=== PATIENT | female | born 2000 | race Caucasian/White ===

== ENCOUNTER 2024-03-24 16:01 | Outpatient (AMB) | payer BC, SELFPAY ==
--- NOTE | 2024-03-24 16:09 | MHC.OFFWIV ---
Intake Vital Signs 03/24/24 16:18 BP 122/80 Blood Pressure Location Rt brachial Position Sitting Pulse 81 Pulse Source Pulse Oximeter Temp 98.2 F Temp Source Oral Pulse Oximetry (%) 97 Oxygen Delivery Method Room Air Intake Visit Reasons: [employer] cough nasal congestion Intake Note: pt is here for cough with nasal congestion for over 8 months and spits up green phlem Patient Tobacco Use Status: Never used Tobacco Allergies No Known Allergies Allergy (Verified 03/24/24 16:10) Do you need a note to return to daycare/school/sports/work: No HPI HPI Comments History of Present Illness Details 23 y/o female patient who presents to walk in clinic with c/o persitent dry cough, nasal congestion and sneezing for 8 months. Pt just moved to [place] from [place] 8 months ago. Denies fevers, chills, nausea or vomiting. PFSH Social History Patient Tobacco Use Status: Never used Tobacco Review of Systems Const All systems reviewed & are unremarkable except as noted in HPI and below Physical Exam Vital Signs: Last Vital Signs Temp 98.2 F 03/24/24 16:18 Pulse 81 03/24/24 16:18 BP 122/80 03/24/24 16:18 Pulse Ox 97 03/24/24 16:18 Oxygen Delivery Method Room Air 03/24/24 16:18 Const General: comfortable and no acute distress Nutritional Appearance: obese Orientation/consciousness: patient oriented x3 HEENT Head: Yes normocephalic Ears: external ears normal and TM abnormal bulging, erythematous and with fluid behind the TM; not perforated and not retracted General nose exam: Abnormal mucous membranes and turbinates present boggy and erythematous Face and sinus: Yes sinuses nontender Mouth: moist mucous membranes Throat: Yes posterior oropharynx normal Resp Effort & Inspection: normal respiratory effort and able to speak in complete sentences Auscultation: clear to auscultation bilaterally, no crackles, no rales, no rhonchi and no wheezes Cardio Rate: regular rate Rhythm: regular rhythm Neuro General: patient oriented x3, gait normal and moves all extremities Psych Speech and movement: Normal speech and movement present Assessment & Plan Assessment & Plan (1) Upper respiratory infection: Code(s): J06.9 - Acute upper respiratory infection, unspecified Plan: OTC cold/cough remedies Rest and hydrate well with fluids and honey (2) Cough in adult: Code(s): R05.9 - Cough, unspecified Plan: OTC cold/cough remedies Rest and hydrate well with fluids and honey Ordered chest Xray (3) Allergic rhinitis: Code(s): J30.9 - Allergic rhinitis, unspecified Qualifiers: Allergic rhinitis trigger: pollen Allergic rhinitis seasonality: seasonal Qualified Code(s): J30.1 - Allergic rhinitis due to pollen Plan: Recommended Allergy testing Orders: Orders XR chest 2V Today J06.9 - Acute upper respiratory infection, unspecified, R05.9 - Cough, unspecified Medications: New fluticasone propionate 50 mcg/actuation (Flonase Allergy Relief) administer into each nostril 2 sprays intranasal DAILY 16 grams 0RF J06.9 - Acute upper respiratory infection, unspecified, J30.1 - Allergic rhinitis due to pollen prednisone 50 mg PO DAILY 5 days 5 tabs 0RF J06.9 - Acute upper respiratory infection, unspecified, R05.9 - Cough, unspecified doxycycline hyclate 100 mg PO BID 10 days 20 caps 0RF J06.9 - Acute upper respiratory infection, unspecified, R05.9 - Cough, unspecified cetirizine (Zyrtec) TAKE DIRECTED BY MD 10 mg PO DAILY PRN 90 tabs 0RF allergy symptoms J30.1 - Allergic rhinitis due to pollen Coding Level of Care Code Est Pt Level 3 (84826) Diagnoses Upper respiratory infection J06.9 Cough in adult R05.9 Seasonal allergic rhinitis due to pollen J30.1 Allergic rhinitis trigger: pollen Allergic rhinitis seasonality: seasonal Time Spent (min) 15
[2024-03-24 16:18] VITALS: BP 122/80; PULSE 81; TEMP 36.8; O2SAT 97
== END 2024-03-24 16:40 | disposition home or self-care (01) ==
PROVIDERS: PCP Pediatrics; Visit Provider Nurse Practitioner Family
DX: J06.9 Acute upper respiratory infection, unspecified (principal); R05.9 Cough, unspecified; J30.1 Allergic rhinitis due to pollen
CPT/HCPCS: 99213

== ENCOUNTER 2024-05-26 10:24 | Outpatient (AMB) | payer BC, SELFPAY ==
[2024-05-26 10:37] VITALS: BP 120/84; PULSE 90; TEMP 36.8; O2SAT 98; BMI 32.1
--- NOTE | 2024-05-26 10:37 | MHC.OFFWIV ---
Intake Vital Signs 05/26/24 10:37 Height 5 ft 6 in Weight 199 lb BMI 32.1 BP 120/84 Blood Pressure Location Lt brachial Position Sitting Pulse 90 Pulse Source Pulse Oximeter Temp 98.2 F Temp Source Oral Pulse Oximetry (%) 98 Oxygen Delivery Method Room Air Intake Visit Reasons: EP Back pain Intake Note: Pt c/o back pain. Started Wednesday. No known injury. Patient Tobacco Use Status: Never used Tobacco Allergies No Known Allergies Allergy (Verified 05/26/24 10:49) Do you need a note to return to daycare/school/sports/work: Yes HPI HPI Comments History of Present Illness Details Patient is a 23-year-old female complaining of mid spine pain and right lower shoulder pain for 6 days. She denies any injury, she denies any new mattresses or pillows or sleeping differently. She states that it is worse when she moves her back. She has tried taking Tylenol and ibuprofen without much relief. She has also tried a heating pad without much relief. [facility] Social History Patient Tobacco Use Status: Never used Tobacco Review of Systems Const All systems reviewed & are unremarkable except as noted in HPI and below Physical Exam Vital Signs: Last Vital Signs Temp 98.2 F 05/26/24 10:37 Pulse 90 05/26/24 10:37 BP 120/84 05/26/24 10:37 Pulse Ox 98 05/26/24 10:37 Oxygen Delivery Method Room Air 05/26/24 10:37 BMI result Body Mass Index 32.1 Const General: cooperative, healthy appearing and comfortable Orientation/consciousness: patient oriented x3 HEENT Head: Yes normal to inspection and Yes normocephalic General nose exam: Normal external nose present Face and sinus: Yes normal facial exam Eyes General: appearance normal, both eyes and all related structures Resp Effort & Inspection: normal respiratory effort and able to speak in complete sentences Back/Spine/Pelvis Cervical Spine: cervical ROM normal and No Cervical spine tenderness Thoracic/Lumbar Spine: thoracic and lumbar spine normal to inspection, pain with thoraco-lumbar ROM, paraspinal muscle tenderness (mid-low thoracic) bilaterally, No thoraco-lumbar ROM limited, No thoracic spinal tenderness and No lumbar spinal tenderness Neuro General: patient oriented x3 Assessment & Plan Assessment & Plan (1) Back pain: Code(s): M54.9 - Dorsalgia, unspecified Qualifiers: Back pain location: thoracic back pain Chronicity: acute Back pain laterality: bilateral Qualified Code(s): M54.6 - Pain in thoracic spine Plan: Recommended patient use Aleve around the clock for the next 3-4 days as well as a muscle relaxer as needed. Gave warnings to not take the muscle relaxer while she is driving a car, operating heavy machinery or drinking alcohol. Also recommended using [id number] patches such as Salonpas or similar with heat, lidocaine. Also recommended trying Voltaren gel, heat or ice. If no improvement in symptoms, she should follow up with her PCP. Plan see above Medications: New cyclobenzaprine 5 mg PO TID PRN 7 tabs 0RF muscle spasm Coding Level of Care Code New Pt Level 3 (25559) Diagnoses Acute bilateral thoracic back pain M54.6 Back pain location: thoracic back pain Chronicity: acute Back pain laterality: bilateral
== END 2024-05-26 11:10 | disposition home or self-care (01) ==
PROVIDERS: PCP Student in an Organized Health Care Education/Training Program; Visit Provider Physician Assistant
DX: M54.6 Pain in thoracic spine (principal)
CPT/HCPCS: 99203